=== PATIENT | male | born 1960 | race African-American/Black ===

== ENCOUNTER 2020-04-01 19:24 | Emergency (ER) | payer OTHER ==
[~2020-04-01] VITALS: Ht 165.1 cm; Wt 61.4 kg
[2020-04-01 21:37] VITALS: BP 137/77
== END 2020-04-01 21:43 | disposition home or self-care (01) ==
LOC: EMS 19:24
DX: R10.9 Unspecified abdominal pain (principal); R30.0 Dysuria; J45.909 Unspecified asthma, uncomplicated; Z88.0 Allergy status to penicillin
CPT/HCPCS: 74176; 99284; 81002-TC; Z7502